=== PATIENT | male | born 1960 | race Hispanic/Latino ===

== ENCOUNTER → 2024-11-09 | Outpatient (CLI) | payer OTHER ==
--- NOTE | 2024-11-09 13:30 | NUR ---
MBSS COMPLETED (OUTPATIENT). Recommend regular solids, thin liquids, and pills whole with liquids as tolerated. No aspirations/no deep penetrations. Pt observed with transient penetrations during the swallow with thin liquids via cup and straw sips. Compensatory strategies: 1. sit upright during oral intake 2. extra dry swallows DIAGNOSTIC FINDINGS: Oropharyngeal swallowing is within functional limits. No deep penetrations or aspirations observed. Pt with mild pharyngeal residue cleared with re-swallows. Otherwise, exam was negative for etiology of patients c/o globus sensation/choking with oral intake. Coughs during exam not indicating penetrations/aspirations. DIESEL ENGINE OPERATOR reviewed results and recommendations with patient. DIESEL ENGINE OPERATOR educated patient on risks and consequences of aspiration. Speech therapy not warranted at this time. All questions answered. Addendum: 11/09/[address] [facility] Amended: Links added.
--- NOTE | 2024-11-10 06:24 | HMCIMG ---
EXAM: XR Barium Swallow Study CLINICAL HISTORY: Dysphagia. COMPARISON: None provided. FINDINGS: The barium swallow study demonstrated normal swallowing movements in the oral, pharyngeal, and upper esophageal phases. Unremarkable nasopharynx. The epiglottis is identified and is unremarkable. The airway is clear. No acute osseous abnormality. Mild cervical spondylosis at C5-C6 and C6-C7. Incidental unerupted maxillary tooth. IMPRESSION: The barium swallow study demonstrated normal swallowing movements in the oral, pharyngeal, and upper esophageal phases. [facility]
== END | disposition home or self-care (01) ==
LOC: RAH 12:47
PROVIDERS: ATTEND Internal Medicine Gastroenterology
DX: R13.13 Dysphagia, pharyngeal phase (principal); R63.30 Feeding difficulties, unspecified; M47.812 Spondylosis without myelopathy or radiculopathy, cervical region
CPT/HCPCS: 74230; 92611